=== PATIENT | male | born 1930 | race Caucasian/White ===

== ENCOUNTER 2016-11-23 11:13 | Inpatient (IN) | payer MEDICARE, OTHER ==
[2016-11-23] MEDS ORDERED: LIPITOR40 M1 PO (11:50)
[2016-11-23] MEDS ORDERED: AMIODARONE HCL200 M1 NG (11:50)
[2016-11-23] MEDS ORDERED: ASPIRIN325 M3 PO (11:51)
[2016-11-23] MEDS ORDERED: ARICEPT10 M2 NG (11:51)
[2016-11-23] MEDS ORDERED: POLYETHYLENE G255 G1 NG (11:52)
[2016-11-23] MEDS ORDERED: FLOMAX0.4 M1 PO (11:53)
[2016-11-23] MEDS ORDERED: TYLENOL325 M2 NG (12:00)
[2016-11-23] MEDS ORDERED: LOPERAMIDE2 M2 PO (12:07)
[2016-11-23] MEDS ORDERED: TERAZOSIN HCL1 M1 NG (12:08)
[2016-11-23] MEDS ORDERED: DAPTOMYCIN500 MG IV (12:10)
[2016-11-23] MEDS ORDERED: TRIPLE ANTIBIOTIC TOP (12:11)
[2016-11-23] MEDS ORDERED: MUCINEX600 M1 PO (12:13)
[2016-11-23] MEDS ORDERED: NAMENDA10 M1 NG (12:14)
[2016-11-23] MEDS ORDERED: REMERON15 M1 PO (12:15)
[2016-11-23] MEDS ORDERED: RANITIDINE15 MG/1 ML NG (12:18)
[2016-11-23] MEDS ORDERED: [UNRECOGNIZED DRUG - OTHER] PO (12:21)
[2016-11-23] MEDS ORDERED: FERROUS SU220 MG/54 NG (12:23)
[2016-11-23] MEDS ORDERED: [UNRECOGNIZED DRUG - OTHER] NG (12:24)
[2016-11-23] MEDS ORDERED: CULTURELLE1 EAC1 NG (12:25)
[2016-11-23] MEDS ORDERED: LOVENOX40 MG/0.1 SC (12:25)
[2016-11-23] MEDS ORDERED: RIFAMPIN300 M1 NG (12:26)
[2016-11-23] MEDS ORDERED: TYLENOL EXTRA500 M1 PO (12:27)
[2016-11-23] MEDS ORDERED: CATHFLO ACTIVASE2 MG IV (12:29)
[2016-11-23] MEDS ORDERED: VITAMIN D31000 UNI3 NG (12:32)
[2016-11-23] MEDS ORDERED: MILK OF MAGNESIA NG (12:34)
[2016-11-23] MEDS ORDERED: BISCOLAX10 MG PR (12:34)
[2016-11-23] MEDS ORDERED: GAVILAX17 G2 NG (12:39)
[2016-11-23] MEDS ORDERED: NORMAL SALINE FL2 ML IVP ×2 (12:43→12:44)
[2016-11-24 03:29] LABS: BASO % 0.2 % (0-2); HGB-HEMOGLOBIN 6.9 gm/dl (13.5-17.0); IMMATURE GRANULOCYTES ABSOLUTE 0.03 tho/cmm (0-0.03); IMMATURE GRANULOCYTES PERCENT 0.3 % (0-0.3); LYMPH % 8.5 % (20-45); LYMPH ABSOLUTE COUNT 0.9 tho/cmm (0.8-4.5); MCH (MEAN CORPUSCULAR HGB) 31.7 pg (28.0-32.0); MCV (MEAN CELL VOLUME) 97.2 fl (82.0-96.0); MEAN PLATELET VOLUME 9.7 cmc (9.4-12.4); MONO % 3.1 % (0-12); MONOCYTE ABSOLUTE COUNT 0.3 tho/cmm (0.0-1.2); NEUTROPHIL ABSOLUTE COUNT 9.4 tho/cmm (1.6-8.0); NEUTROPHIL-AUTOMATED 9.4 tho/cmm (1.6-8.0); NEUTROPHILS % 87.9 % (40-80); PLATELET COUNT 277 tho/cmm (150-450); RED BLOOD COUNT 2.18 mil/cmm (4.40-5.70); RED CELL DISTRIBUTION WIDTH 17.5 % (12.4-16.4); WHITE BLOOD COUNT 10.7 tho/cmm (4.0-10.0)
[2016-11-24 03:42] LABS: ALB/GLOB RATIO 0.3 (0.8-2.0); ALBUMIN 1.5 g/dl (3.5-5.0); ALKALINE PHOSPHATASE 101 U/L (33-138); ALT/SGPT 64 U/L (12-78); ANION GAP 8 mmol/L (0-20); AST/SGOT 40 U/L (10-40); BILIRUBIN,TOTAL 0.3 mg/dl (0.0-1.5); BLOOD UREA NITROGEN 21 mg/dl (6-24); C-REACTIVE PROTEIN 17.8 mg/dl (0-0.9); CALCIUM 7.8 mg/dl (8.5-10.5); CARBON DIOXIDE-VENOUS 29 mmol/L (22-32); CHLORIDE 105 mmol/l (96-110); CREATINE PHOSPHOKINASE (CPK) 16 U/L (35-232); CREATININE 1.15 mg/dl (0.60-1.30); GLUCOSE 118 mg/dL (70-110); MAGNESIUM 2.2 mg/dl (1.8-2.6); POTASSIUM 4.9 mmol/L (3.7-5.1); SODIUM 137 mmol/L (135-145); eGFR VALUE FOR BLACK 67 mL/Min
[2016-11-24 04:04] LABS: HCT-HEMATOCRIT 21.2 % (36.0-53.5); MCHC MEAN CORPUSCULAR HGB CONC 32.5 % (32.0-36.0)
[2016-11-24 05:58] LABS: ESR-ERYTHROCYTE SED RATE >140 mm/hr (0-20)
[2016-11-24 14:56] LABS: BAL APPEARANCE CLOUDY (CLEAR)
[2016-11-24 16:34] LABS: BAL LYMPHOCYTES 8 %; BAL NEUTROPHILS 87 %
[2016-11-24 16:35] LABS: BAL COLOR YELLOW (COLORLESS)
[2016-11-25 05:05] LABS: BASO % 0.1 % (0-2); EOS % 0.5 % (0-7); EOSINOPHIL ABSOLUTE COUNT 0.1 tho/cmm (0.0-0.7); HCT-HEMATOCRIT 24.3 % (36.0-53.5); HGB-HEMOGLOBIN 7.9 gm/dl (13.5-17.0); IMMATURE GRANULOCYTES ABSOLUTE 0.08 tho/cmm (0-0.03); IMMATURE GRANULOCYTES PERCENT 0.6 % (0-0.3); LYMPH % 10.7 % (20-45); LYMPH ABSOLUTE COUNT 1.4 tho/cmm (0.8-4.5); MCH (MEAN CORPUSCULAR HGB) 30.9 pg (28.0-32.0); MCHC MEAN CORPUSCULAR HGB CONC 32.5 % (32.0-36.0); MCV (MEAN CELL VOLUME) 94.9 fl (82.0-96.0); MEAN PLATELET VOLUME 9.7 cmc (9.4-12.4); MONO % 4.3 % (0-12); MONOCYTE ABSOLUTE COUNT 0.6 tho/cmm (0.0-1.2); NEUTROPHIL ABSOLUTE COUNT 10.7 tho/cmm (1.6-8.0); NEUTROPHIL-AUTOMATED 10.7 tho/cmm (1.6-8.0); NEUTROPHILS % 83.8 % (40-80); PLATELET COUNT 341 tho/cmm (150-450); RED BLOOD COUNT 2.56 mil/cmm (4.40-5.70); RED CELL DISTRIBUTION WIDTH 17.9 % (12.4-16.4); WHITE BLOOD COUNT 12.7 tho/cmm (4.0-10.0)
[2016-11-25 05:10] LABS: ALB/GLOB RATIO 0.3 (0.8-2.0); ALBUMIN 1.7 g/dl (3.5-5.0); ALKALINE PHOSPHATASE 92 U/L (33-138); ALT/SGPT 83 U/L (12-78); ANION GAP 12 mmol/L (0-20); AST/SGOT 55 U/L (10-40); BILIRUBIN,TOTAL 0.3 mg/dl (0.0-1.5); BLOOD UREA NITROGEN 23 mg/dl (6-24); C-REACTIVE PROTEIN 9.7 mg/dl (0-0.9); CALCIUM 8.2 mg/dl (8.5-10.5); CARBON DIOXIDE-VENOUS 25 mmol/L (22-32); CHLORIDE 107 mmol/l (96-110); CREATININE 1.13 mg/dl (0.60-1.30); GLUCOSE 149 mg/dL (70-110); POTASSIUM 4.5 mmol/L (3.7-5.1); PREALBUMIN 10.8 mg/dl (20.0-40.0); SODIUM 139 mmol/L (135-145); eGFR VALUE FOR BLACK 68 mL/Min
[2016-11-25 06:10] LABS: PROCALCITONIN 0.14 ng/ml (0.05-0.09)
[2016-11-25 08:01] LABS: INR 1.3 INR (0.9-1.1); PROTHROMBIN TIME 14.7 SECONDS (9.0-13.6)
[2016-11-26 04:01] LABS: EOS % 0.3 % (0-7); HCT-HEMATOCRIT 25.6 % (36.0-53.5); HGB-HEMOGLOBIN 8.3 gm/dl (13.5-17.0); IMMATURE GRANULOCYTES PERCENT 0.8 % (0-0.3); LYMPH % 10.9 % (20-45); LYMPH ABSOLUTE COUNT 1.3 tho/cmm (0.8-4.5); MCHC MEAN CORPUSCULAR HGB CONC 32.4 % (32.0-36.0); MCV (MEAN CELL VOLUME) 95.5 fl (82.0-96.0); MEAN PLATELET VOLUME 9.4 cmc (9.4-12.4); MONO % 4.8 % (0-12); MONOCYTE ABSOLUTE COUNT 0.6 tho/cmm (0.0-1.2); NEUTROPHIL ABSOLUTE COUNT 9.8 tho/cmm (1.6-8.0); NEUTROPHIL-AUTOMATED 9.8 tho/cmm (1.6-8.0); NEUTROPHILS % 83.2 % (40-80); PLATELET COUNT 348 tho/cmm (150-450); RED BLOOD COUNT 2.68 mil/cmm (4.40-5.70); RED CELL DISTRIBUTION WIDTH 17.7 % (12.4-16.4); WHITE BLOOD COUNT 11.8 tho/cmm (4.0-10.0)
[2016-11-26] MEDS ORDERED: LINEZOLID600 MG/300 IV (12:08)
[2016-11-26] MEDS ORDERED: IPRAT-ALBUT 0.5-3 ML AERO NEB (12:09)
[2016-11-26] MEDS ORDERED: ASPIRIN81 M1 PO (12:11)
[2016-11-26] MEDS ORDERED: PROTONIX40 M3 GT (12:14)
[2016-11-26] MEDS ORDERED: PREDNISONE20 M1 GT ×2 (12:22→12:24)
[2016-11-26] MEDS ORDERED: PREDNISONE10 M1 GT ×2 (12:23→12:24)
== END 2016-11-26 13:00 | DRG 177 ==
LOC: CCU 11:13
PROVIDERS: Internal Medicine; Internal Medicine Infectious Disease; Nurse Practitioner; ADMIT Hospitalist
PROC: 5A09357 Assistance with Respiratory Ventilation, Less than 24 Consecutive Hours, Continuous Positive Airway Pressure (ICD-10-PCS; 2016-11-23)
PROC: 0B948ZX Drainage of Right Upper Lobe Bronchus, Via Natural or Artificial Opening Endoscopic, Diagnostic (ICD-10-PCS; principal; 2016-11-24)
PROC: 0DH63UZ Insertion of Feeding Device into Stomach, Percutaneous Approach (ICD-10-PCS; 2016-11-25)
PROC: 3E0234Z Introduction of Serum, Toxoid and Vaccine into Muscle, Percutaneous Approach (ICD-10-PCS; 2016-11-25)
DX: J69.0 Pneumonitis due to inhalation of food and vomit (principal); J96.01 Acute respiratory failure with hypoxia; E43 Unspecified severe protein-calorie malnutrition; E88.09 Other disorders of plasma-protein metabolism, not elsewhere classified; I48.0 Paroxysmal atrial fibrillation; M00.9 Pyogenic arthritis, unspecified; F03.90 Unspecified dementia, unspecified severity, without behavioral disturbance, psychotic disturbance, mood disturbance, and anxiety; E46 Unspecified protein-calorie malnutrition; M86.9 Osteomyelitis, unspecified; J82 Pulmonary eosinophilia, not elsewhere classified; Z87.891 Personal history of nicotine dependence; I10 Essential (primary) hypertension; Z86.14 Personal history of Methicillin resistant Staphylococcus aureus infection; D50.9 Iron deficiency anemia, unspecified; Z86.718 Personal history of other venous thrombosis and embolism; Z86.711 Personal history of pulmonary embolism; F41.9 Anxiety disorder, unspecified; M19.90 Unspecified osteoarthritis, unspecified site; Z88.0 Allergy status to penicillin; Z88.2 Allergy status to sulfonamides; Z88.8 Allergy status to other drugs, medicaments and biological substances; D63.8 Anemia in other chronic diseases classified elsewhere; N40.0 Benign prostatic hyperplasia without lower urinary tract symptoms; I25.10 Atherosclerotic heart disease of native coronary artery without angina pectoris; R19.7 Diarrhea, unspecified; N20.0 Calculus of kidney; K29.70 Gastritis, unspecified, without bleeding; K22.8 Other specified diseases of esophagus; R13.10 Dysphagia, unspecified; N28.9 Disorder of kidney and ureter, unspecified; Z68.25 Body mass index [BMI] 25.0-25.9, adult; Z23 Encounter for immunization
CPT/HCPCS: C9113; G0009; G8996-GN-CL; G8997-GN-CK; G9168-GN-CK; G9169-GN-CJ; J1650; J2020; J2250; J2930; J3010; J7512; P9016